=== PATIENT | female | born 1990 | race Caucasian/White ===

== ENCOUNTER 2017-01-18 18:57 | Observation (INO) ==
[2017-01-18 21:29] LABS: Basophils % 0.2 %; Eosinophils # 0.1 K/mcL (0.0-0.6); Eosinophils % 0.4 %; Hematocrit 34.7 % (35.3-44.9); Hemoglobin 11.7 g/dL (11.5-15.4); Immature Granulocytes % 0.8 % (0-4); Lymphocytes # 1.2 K/mcL (0.6-4.6); Lymphocytes % 8.9 %; Mean Corpuscular HGB Conc 33.7 g/dL (31.6-35.5); Mean Corpuscular Hemoglobin 27.6 pg (28.0-33.3); Mean Corpuscular Volume 81.8 fL (83.0-100.0); Mean Platelet Volume 10.3 fL (9.4-12.4); Monocytes # 1.5 K/mcL (0.0-1.3); Monocytes % 11.1 %; Neutrophils # 10.3 K/mcL (1.6-8.9); Platelet Count 270 K/mcL (140-400); Red Blood Count 4.24 M/mcL (3.82-4.97); Red Cell Distribution Width 13.4 % (11.5-14.5); Segmented Neutrophils % 78.6 %
[2017-01-18 21:31] LABS: INR 1.3; Prothrombin Time 13.7 Seconds (9.4-12.1)
[2017-01-18 21:34] LABS: Activated Partial Thrombo Time 31.1 Seconds (26.0-36.0)
[2017-01-18 21:39] LABS: Alanine Aminotransferase 39 Units/L (0-55); Albumin 2.7 g/dL (3.5-5.0); Albumin/Globulin Ratio 0.5 (1.1-2.2); Alkaline Phosphatase 257 Units/L (38-126); Aspartate Amino Transferase 61 Units/L (5-34); BUN/Creatinine Ratio 12 (6-26); Bilirubin,Total 1.4 mg/dL (0.2-1.2); Blood Urea Nitrogen 12 mg/dL (7-20); Calcium 9.2 mg/dL (8.6-10.8); Carbon Dioxide 24 mEq/L (19-29); Chloride 94 mEq/L (98-109); Globulin 5.3 g/dL (2.4-3.5); Glucose 117 mg/dL (70-99); Osmolality,Calculated 275 (280-300); Potassium 3.1 mEq/L (3.5-4.5); Sodium 132 mEq/L (136-145); eGFR For African Americans > 60 (> 60); eGFR For Non-African Americans > 60 (> 60)
[2017-01-18] MEDS ORDERED: Ondansetron 4 MG/2 ML VIAL IVP ONE (22:15)
[2017-01-18] MEDS ORDERED: Pantoprazole 40 MG VIAL IVP ONE (22:16)
[2017-01-18] MEDS ORDERED: 0.9 % Sodium Chloride 1,000 ML IVC ONE (22:16)
--- NOTE | 2017-01-18 22:19 | Emergency Department Note ---
Disposition Clinical Impression: Abdominal pain Qualifiers: Abdominal location: epigastric Qualified Code(s): R10.13 - Epigastric pain Disposition: Still a Patient Referrals: NO,PCP [Primary Care Provider] - Forms: Work/School Release, ED Satisfaction Letter Abdominal Pain HPI - General Chief Complaint: ED Abdominal Pain Stated Complaint: "vomiting blood" Time Seen by Provider: 01/18/17 22:07 Source: patient Nursing Notes Reviewed: Yes Vital Signs Reviewed: Yes - History of Present Illness HPI Narrative: 26-year-old female presents to the emergency department with 4 day history of midepigastric abdominal pain and vomiting. She states approximately 4 days ago she had vomiting of blood. She said the blood has stopped 2 days ago, but she still vomiting everything she tries to eat or drink. She is not seen blood in her vomit for several days now. She denies blood in her stool. She does have continued midepigastric abdominal pain that is nonradiating in nature. She denies fevers or chills she denies chest pain or shortness of breath. She is here today for correction of her nausea and vomiting. Pt Subjective Complaint: abdominal pain Onset (ago): day(s) Consistency: constant Location: epigastric Pain Severity: moderate Pain Scale: 5 Radiation: none Migration to: no migration Improves with: nothing Worsens with: nothing Context: other (History of IV drug abuse) Associated symptoms: Reports: nausea, vomiting Treatments prior to arrival: none - Related Data Allergies Allergy/AdvReac Type Severity Reaction Status Date / Time No Known Allergies Allergy Verified 01/18/17 19:06 All systems ED: reviewed and negative except as stated. Constitutional: Reports: as per HPI Eyes: Reports: as per HPI ENT ED: Reports: as per HPI Cardiovascular: Reports: as per HPI Respiratory: Reports: as per HPI Gastrointestinal: Reports: abdominal pain, nausea, vomiting Abdominal Pain PMH - Past Medical History Medical history: Reports: hepatitis - Social History Smoking status: Current every day smoker Alcohol use: Reports: none Drug use: Reports: none Physical Exam - General Limitations: no limitations General appearance: alert, in no apparent distress - Head Head exam: atraumatic - Eye Eye exam: Present: normal appearance - ENT ENT exam: normal exam - Neck Neck exam: Present: normal inspection - Chest Chest inspection: Present: normal inspection - Respiratory Respiratory exam: Present: normal lung sounds bilaterally - Cardiovascular Cardiovascular exam: Present: regular rate, normal rhythm - Abdominal Exam Abdominal exam: Present: soft, tenderness, normal bowel sounds. Absent: distention, guarding Abdominal tenderness: Present: epigastrium - Rectal Exam Rectal exam: Present: deferred - Extremities Exam Extremities exam: Present: normal inspection - Neurological Exam Neurological exam: Present: alert, oriented X3 - Psychiatric Psychiatric exam: Present: normal affect, normal mood - Skin Skin exam: Present: warm, dry, intact, other (Track fan from IV drug abuse.) Course Vital Signs Temperature 98.6 F 01/18/17 19:04 Pulse Rate 108 01/18/17 19:04 Respiratory Rate 18 01/18/17 19:04 Blood Pressure 100/70 01/18/17 19:04 O2 Sat by Pulse Oximetry 98 01/18/17 19:04 Temperature 98.6 F 01/18/17 19:04 Pulse Rate 108 01/18/17 19:04 Respiratory Rate 18 01/18/17 19:04 Blood Pressure 100/70 01/18/17 19:04 O2 Sat by Pulse Oximetry 98 01/18/17 19:04 Oxygen Delivery Oxygen Delivery Room Air Abdominal Pain - MDM Narrative Medical decision making narrative: We will do labs to check for abdominal issues including pancreatitis, we will also get a CT scan of the abdomen and pelvis with IV contrast to rule out abscess or other such abnormality. I do not think that she has an active GI bleed. We will treat her with some protonic swollen the emergency department as well as some Zofran to control the vomiting. If the workup is essentially negative I can anticipate patient going home because he do not think again she has an active GI bleed and her H&H is are stable. Patient was signed out to the 19 for final evaluation and treatment. - Lab Data Lab results reviewed: Yes I reviewed the patient's lab results. Result diagrams: 01/18/17 21:19 01/18/17 21:19 Lab Results 01/18/17 01/18/17 01/18/17 Range/Units 21:19 21:19 21:19 WBC 13.1 H (4.3-11.1) K/mcL RBC 4.24 (3.82-4.97) M/mcL Hgb 11.7 (11.5-15.4) g/dL Hct 34.7 L (35.3-44.9) % MCV 81.8 L (83.0-100.0) fL MCH 27.6 L (28.0-33.3) pg MCHC 33.7 (31.6-35.5) g/dL RDW 13.4 (11.5-14.5) % Plt Count 270 (140-400) K/mcL MPV 10.3 (9.4-12.4) fL Immature Gran % 0.8 (0-4) % Seg Neutrophils % 78.6 % Lymphocytes % 8.9 % Monocytes % 11.1 % Eosinophils % 0.4 % Basophils % 0.2 % Neutrophils # 10.3 H (1.6-8.9) K/mcL Lymphocytes # 1.2 (0.6-4.6) K/mcL Monocytes # 1.5 H (0.0-1.3) K/mcL Eosinophils # 0.1 (0.0-0.6) K/mcL Basophils # 0.0 (0.0-0.2) K/mcL PT 13.7 H (9.4-12.1) Seconds INR 1.3 APTT 31.1 (26.0-36.0) Seconds Sodium 132 L (136-145) mEq/L Potassium 3.1 L (3.5-4.5) mEq/L Chloride 94 L (98-109) mEq/L Carbon Dioxide 24 (19-29) mEq/L BUN 12 (7-20) mg/dL Creatinine 0.98 (0.57-1.11) mg/dL Est GFR ( Amer) > 60 (> 60) Est GFR (Non-Af Amer) > 60 (> 60) BUN/Creatinine Ratio 12 (6-26) Glucose 117 H (70-99) mg/dL Calculated Osmolality 275 L (280-300) Calcium 9.2 (8.6-10.8) mg/dL Total Bilirubin 1.4 H (0.2-1.2) mg/dL AST 61 H (5-34) Units/L ALT 39 (0-55) Units/L Alkaline Phosphatase 257 H (38-126) Units/L Serum Total Protein 8.0 (6.0-8.3) g/dL Albumin 2.7 L (3.5-5.0) g/dL Globulin 5.3 H (2.4-3.5) g/dL Albumin/Globulin Ratio 0.5 L (1.1-2.2) Lipase (8-78) Units/L Serum , Qual (Negative) 01/18/17 01/18/17 Range/Units 21:19 21:19 WBC (4.3-11.1) K/mcL RBC (3.82-4.97) M/mcL Hgb (11.5-15.4) g/dL Hct (35.3-44.9) % MCV (83.0-100.0) fL MCH (28.0-33.3) pg MCHC (31.6-35.5) g/dL RDW (11.5-14.5) % Plt Count (140-400) K/mcL MPV (9.4-12.4) fL Immature Gran % (0-4) % Seg Neutrophils % % Lymphocytes % % Monocytes % % Eosinophils % % Basophils % % Neutrophils # (1.6-8.9) K/mcL Lymphocytes # (0.6-4.6) K/mcL Monocytes # (0.0-1.3) K/mcL Eosinophils # (0.0-0.6) K/mcL Basophils # (0.0-0.2) K/mcL PT (9.4-12.1) Seconds INR APTT (26.0-36.0) Seconds Sodium (136-145) mEq/L Potassium (3.5-4.5) mEq/L Chloride (98-109) mEq/L Carbon Dioxide (19-29) mEq/L BUN (7-20) mg/dL Creatinine (0.57-1.11) mg/dL Est GFR ( Amer) (> 60) Est GFR (Non-Af Amer) (> 60) BUN/Creatinine Ratio (6-26) Glucose (70-99) mg/dL Calculated Osmolality (280-300) Calcium (8.6-10.8) mg/dL Total Bilirubin (0.2-1.2) mg/dL AST (5-34) Units/L ALT (0-55) Units/L Alkaline Phosphatase (38-126) Units/L Serum Total Protein (6.0-8.3) g/dL Albumin (3.5-5.0) g/dL Globulin (2.4-3.5) g/dL Albumin/Globulin Ratio (1.1-2.2) Lipase 5 L (8-78) Units/L Serum , Qual Negative (Negative) - Radiology Data Radiology results reviewed: Yes I reviewed the patient's radiology results. S.B.AFloresita - S.SundarAFloresita Situation: Demographics, MOA Background: Presenting Complaint Assessment: Vital Signs, Course and respsone to treatment, Exam Concerns Recommendation: Barrier(s) to disposition, Recommendation based on pending studies, treatments, or consults S.B.A.RMiguel Report Given to: Dr. Celine Ernandez Repor Time: 23:00
[2017-01-18 23:07] LABS: Bilirubin,Urine Negative (Negative); Blood,Urine Large (Negative); Clarity,Urine Cloudy (Clear); Color,Urine Yellow (Yellow); Glucose,Urine (UA) Normal (Normal); Ketones,Urine Negative (Negative); Leukocyte Esterase,Urine Large (Negative); Nitrite,Urine Negative (Negative); PH,Urine 6.5 pH Units (5.0-8.0); Protein,Urine 30 mg/dL (Neg-Trace); Specific Gravity,Urine 1.008 (1.010-1.025); Urobilinogen,Urine Normal (Normal)
[2017-01-18 23:11] LABS: Bacteria,Urine Many per hpf (None-Few); Hyaline Casts,Urine None Seen per lpf (None-Few); Squamous Epithelial Cell,Urine Many per lpf (None-Few); WBC,Urine 30-50 per hpf (0-3)
[2017-01-19] MEDS ORDERED: 0.9 % Sodium Chloride 1,000 ML IVC ONE (01:32)
--- NOTE | 2017-01-19 01:35 | Emergency Department Note ---
Disposition Clinical Impression: Abdominal pain Qualifiers: Abdominal location: epigastric Qualified Code(s): R10.13 - Epigastric pain Disposition: Still a Patient General Adult HPI - General Chief complaint: ED Abdominal Pain Stated complaint: "vomiting blood" Time Seen by Provider: 01/18/17 22:07 Source: patient Limitations: no limitations - History of Present Illness Pain Scale: 4 - Related Data Allergies Allergy/AdvReac Type Severity Reaction Status Date / Time No Known Allergies Allergy Verified 01/18/17 19:06 Constitutional: Reports: as per HPI Eyes: Reports: as per HPI ENT ED: Reports: as per HPI Cardiovascular: Reports: as per HPI Respiratory: Reports: as per HPI Gastrointestinal: Reports: abdominal pain, nausea, vomiting Past Medical History - Past Medical History Medical history: Reports: hepatitis - Social History Smoking Status: Current every day smoker Alcohol use: Reports: none Drug use: Reports: none Physical Exam - General Limitations: no limitations General appearance: alert, in no apparent distress Course Course Narrative: Patient was seen by Dr. Montenegro. Care was handed off to Dr. Mcwilliams and me , after discussion of the case. Patient's labs had been resulted, but CT has not been done yet. Pt has no complaints at this time. BP is slightly below normal, however she is only 42 kg. Upon arrival to the ED she was mildly tachycardic. She has received 1Liter of NS and repeat pulse x [address] shows Pyelonephritis. Patient also has leukocytosis and vomiting. Will admit. Lactate, blood cultures and Rocephin ordered, along with additional fluids. Hospitalist contacted for admission. Patient has been accepted. Of note, patient states that she was recently diagnosed with a UTI and was given Bactrim DS. She took this for several days and then the vomiting began - which precluded her from taking the rest of it. Vital Signs Temperature 98.6 F 01/18/17 19:04 Pulse Rate 108 01/18/17 19:04 Respiratory Rate 18 01/18/17 19:04 Blood Pressure 100/70 01/18/17 19:04 O2 Sat by Pulse Oximetry 98 01/18/17 19:04 Temperature 98.6 F 01/18/17 19:04 Pulse Rate 98 01/19/17 01:25 Respiratory Rate 16 01/19/17 01:25 Blood Pressure 104/76 01/19/17 01:25 O2 Sat by Pulse Oximetry 98 01/19/17 01:25 Oxygen Delivery Oxygen Delivery Room Air Medical Decision Making - Lab Data Result diagrams: 01/18/17 21:19 01/18/17 21:19 Lab Results 01/18/17 01/18/17 01/18/17 Range/Units 21:19 21:19 21:19 WBC 13.1 H (4.3-11.1) K/mcL RBC 4.24 (3.82-4.97) M/mcL Hgb 11.7 (11.5-15.4) g/dL Hct 34.7 L (35.3-44.9) % MCV 81.8 L (83.0-100.0) fL MCH 27.6 L (28.0-33.3) pg MCHC 33.7 (31.6-35.5) g/dL RDW 13.4 (11.5-14.5) % Plt Count 270 (140-400) K/mcL MPV 10.3 (9.4-12.4) fL Immature Gran % 0.8 (0-4) % Seg Neutrophils % 78.6 % Lymphocytes % 8.9 % Monocytes % 11.1 % Eosinophils % 0.4 % Basophils % 0.2 % Neutrophils # 10.3 H (1.6-8.9) K/mcL Lymphocytes # 1.2 (0.6-4.6) K/mcL Monocytes # 1.5 H (0.0-1.3) K/mcL Eosinophils # 0.1 (0.0-0.6) K/mcL Basophils # 0.0 (0.0-0.2) K/mcL PT 13.7 H (9.4-12.1) Seconds INR 1.3 APTT 31.1 (26.0-36.0) Seconds Sodium 132 L (136-145) mEq/L Potassium 3.1 L (3.5-4.5) mEq/L Chloride 94 L (98-109) mEq/L Carbon Dioxide 24 (19-29) mEq/L BUN 12 (7-20) mg/dL Creatinine 0.98 (0.57-1.11) mg/dL Est GFR ( Amer) > 60 (> 60) Est GFR (Non-Af Amer) > 60 (> 60) BUN/Creatinine Ratio 12 (6-26) Glucose 117 H (70-99) mg/dL Calculated Osmolality 275 L (280-300) Calcium 9.2 (8.6-10.8) mg/dL Total Bilirubin 1.4 H (0.2-1.2) mg/dL AST 61 H (5-34) Units/L ALT 39 (0-55) Units/L Alkaline Phosphatase 257 H (38-126) Units/L Serum Total Protein 8.0 (6.0-8.3) g/dL Albumin 2.7 L (3.5-5.0) g/dL Globulin 5.3 H (2.4-3.5) g/dL Albumin/Globulin Ratio 0.5 L (1.1-2.2) Lipase (8-78) Units/L Serum , Qual (Negative) Urine Color (Yellow) Urine Clarity (Clear) Urine pH (5.0-8.0) pH Units Ur Specific [place] (1.010-1.025) Urine Protein (Neg-Trace) mg/dL Urine Glucose (UA) (Normal) mg/dL Urine Ketones (Negative) mg/dL Urine Blood (Negative) Urine Nitrite (Negative) Urine Bilirubin (Negative) Urine Urobilinogen (Normal) mg/dL Ur Leukocyte Esterase (Negative) Urine Microscopic RBC (0-3) per hpf Urine Microscopic WBC (0-3) per hpf Ur Squamous Epith Cells (None-Few) per lpf Urine Bacteria (None-Few) per hpf Hyaline Casts (None-Few) per lpf Ur Culture Indicated? (NO) Urine Test (Negative) 01/18/17 01/18/17 01/18/17 Range/Units 21:19 21:19 23:00 WBC (4.3-11.1) K/mcL RBC (3.82-4.97) M/mcL Hgb (11.5-15.4) g/dL Hct (35.3-44.9) % MCV (83.0-100.0) fL MCH (28.0-33.3) pg MCHC (31.6-35.5) g/dL RDW (11.5-14.5) % Plt Count (140-400) K/mcL MPV (9.4-12.4) fL Immature Gran % (0-4) % Seg Neutrophils % % Lymphocytes % % Monocytes % % Eosinophils % % Basophils % % Neutrophils # (1.6-8.9) K/mcL Lymphocytes # (0.6-4.6) K/mcL Monocytes # (0.0-1.3) K/mcL Eosinophils # (0.0-0.6) K/mcL Basophils # (0.0-0.2) K/mcL PT (9.4-12.1) Seconds INR APTT (26.0-36.0) Seconds Sodium (136-145) mEq/L Potassium (3.5-4.5) mEq/L Chloride (98-109) mEq/L Carbon Dioxide (19-29) mEq/L BUN (7-20) mg/dL Creatinine (0.57-1.11) mg/dL Est GFR ( Amer) (> 60) Est GFR (Non-Af Amer) (> 60) BUN/Creatinine Ratio (6-26) Glucose (70-99) mg/dL Calculated Osmolality (280-300) Calcium (8.6-10.8) mg/dL Total Bilirubin (0.2-1.2) mg/dL AST (5-34) Units/L ALT (0-55) Units/L Alkaline Phosphatase (38-126) Units/L Serum Total Protein (6.0-8.3) g/dL Albumin (3.5-5.0) g/dL Globulin (2.4-3.5) g/dL Albumin/Globulin Ratio (1.1-2.2) Lipase 5 L (8-78) Units/L Serum , Qual Negative (Negative) Urine Color Yellow (Yellow) Urine Clarity Cloudy A (Clear) Urine pH 6.5 (5.0-8.0) pH Units Ur Specific [place] 1.008 L (1.010-1.025) Urine Protein 30 H (Neg-Trace) mg/dL Urine Glucose (UA) Normal (Normal) mg/dL Urine Ketones Negative (Negative) mg/dL Urine Blood Large H (Negative) Urine Nitrite Negative (Negative) Urine Bilirubin Negative (Negative) Urine Urobilinogen Normal (Normal) mg/dL Ur Leukocyte Esterase Large H (Negative) Urine Microscopic RBC 3-5 H (0-3) per hpf Urine Microscopic WBC 30-50 H (0-3) per hpf Ur Squamous Epith Cells Many H (None-Few) per lpf Urine Bacteria Many H (None-Few) per hpf Hyaline Casts None Seen (None-Few) per lpf Ur Culture Indicated? YES A (NO) Urine Test (Negative) 01/18/17 Range/Units 23:00 WBC (4.3-11.1) K/mcL RBC (3.82-4.97) M/mcL Hgb (11.5-15.4) g/dL Hct (35.3-44.9) % MCV (83.0-100.0) fL MCH (28.0-33.3) pg MCHC (31.6-35.5) g/dL RDW (11.5-14.5) % Plt Count (140-400) K/mcL MPV (9.4-12.4) fL Immature Gran % (0-4) % Seg Neutrophils % % Lymphocytes % % Monocytes % % Eosinophils % % Basophils % % Neutrophils # (1.6-8.9) K/mcL Lymphocytes # (0.6-4.6) K/mcL Monocytes # (0.0-1.3) K/mcL Eosinophils # (0.0-0.6) K/mcL Basophils # (0.0-0.2) K/mcL PT (9.4-12.1) Seconds INR APTT (26.0-36.0) Seconds Sodium (136-145) mEq/L Potassium (3.5-4.5) mEq/L Chloride (98-109) mEq/L Carbon Dioxide (19-29) mEq/L BUN (7-20) mg/dL Creatinine (0.57-1.11) mg/dL Est GFR ( Amer) (> 60) Est GFR (Non-Af Amer) (> 60) BUN/Creatinine Ratio (6-26) Glucose (70-99) mg/dL Calculated Osmolality (280-300) Calcium (8.6-10.8) mg/dL Total Bilirubin (0.2-1.2) mg/dL AST (5-34) Units/L ALT (0-55) Units/L Alkaline Phosphatase (38-126) Units/L Serum Total Protein (6.0-8.3) g/dL Albumin (3.5-5.0) g/dL Globulin (2.4-3.5) g/dL Albumin/Globulin Ratio (1.1-2.2) Lipase (8-78) Units/L Serum , Qual (Negative) Urine Color (Yellow) Urine Clarity (Clear) Urine pH (5.0-8.0) pH Units Ur Specific [place] (1.010-1.025) Urine Protein (Neg-Trace) mg/dL Urine Glucose (UA) (Normal) mg/dL Urine Ketones (Negative) mg/dL Urine Blood (Negative) Urine Nitrite (Negative) Urine Bilirubin (Negative) Urine Urobilinogen (Normal) mg/dL Ur Leukocyte Esterase (Negative) Urine Microscopic RBC (0-3) per hpf Urine Microscopic WBC (0-3) per hpf Ur Squamous Epith Cells (None-Few) per lpf Urine Bacteria (None-Few) per hpf Hyaline Casts (None-Few) per lpf Ur Culture Indicated? (NO) Urine Test Negative (Negative)
[2017-01-19] MEDS ORDERED: Ondansetron 4 MG/2 ML VIAL IVP PRN (03:13)
[2017-01-19] MEDS ORDERED: Naloxone 0.4 MG/ML INJ IVP PRN (03:13)
[2017-01-19] MEDS: Acetaminophen 325 MG TABLET PO PRN ×2 (03:32→18:27)
[2017-01-19] MEDS: 0.9 % Sodium Chloride 1,000 ML IVC SCH ×2 (03:37→19:44)
--- NOTE | 2017-01-19 05:59 | Internal Med History&Physical ---
Date of Encounter: 01/19/17 Time of Encounter: 03:00 Assessment and Plan (1) Acute infective polyneuritis Current visit: Yes Status: Acute Acute polynephritis. - Continue antibiotic Rocephin. - Follow-up urine culture - Symptomatic treatment. (2) DVT prophylaxis Current visit: Yes Status: Acute Patient is young and ambulatory. No anticoagulation also because patient has hematuria (3) Tobacco abuse Current visit: Yes Status: Acute Nicotine patch placed. Internal Medicine - H&P: HPI Chief complaint: Hematuria Admitted From: Home Plans for Post Hospital Care: Home History of present illness: Ms. Portillo is a 26 year old female presented to ER for hematuria for 3 days. She said that the blood is mixed with urine. Patient also has urgency and increased the frequency of urination. She has fever to 102. She complains left sided flank pain, constant, 4 out of 10. Patient also has nausea and vomited. Vomiting is stomach content. In emergency room, CT abdomen shows left side pyelonephritis. Patient was admitted as acute pyelonephritis. Discussed the CODE STATUS with patient. She is full code. Past Med Surg Social Fam HX - Past Medical History Medical history: hepatitis, other - Social History Smoking Status: Current every day smoker Packs per day: 0.5 Smokeless Tobacco Status: No Alcohol use: none Drug use: none - Family History Mother Hx Family Cardiac Disorders: Yes (DVT) Internal Medicine - H&P: Meds Allergies No Known Allergies Allergy (Verified 01/18/17 19:06) All Systems PM: A 10-system review of systems was performed and is negative for pertinent findings except as documented above in the HPI. - Constitutional Vitals: Temp Pulse Resp BP Pulse Ox 97.9 F 109 16 110/69 99 01/19/17 03:49 01/19/17 03:49 01/19/17 03:49 01/19/17 03:49 01/19/17 03:49 General appearance: Present: A&O X 3, no acute distress, answers questions appropriately - Head Head exam: Present: atraumatic, normocephalic - Eye Eye exam: Present: PERRL, conjuntiva pink, sclera anicteric Pupils: Present: PERRL - Neck Neck exam general surgery: Present: supple, trachea midline. Absent: lymphadenopathy - Respiratory Respiratory exam: Present: CTAB. Absent: accessory muscle use, rales, rhonchi, wheezes - Cardiovascular Cardiovascular exam: Present: RRR, +S1, +S2. Absent: diastolic murmur, gallop, rubs, systolic murmur - GI/Abdominal GI/Abdominal exam: Present: normal bowel sounds, soft, no peritoneal signs. Absent: distended, tenderness Additional comments: Left CVAT positive - Extremities Exam Extremities exam: Present: warm, radial pulses palpable and symetrical. Absent : calf tenderness, cyanotic, pedal edema - Neurological Exam Neurological exam: Present: CN II-XII intact, oriented X3, no focal deficits. Absent: pronater drift, facial droop, speech deficit - Skin Skin exam: Present: dry, intact Internal Med - H&P Results - Labs CBC & Chem 7: 01/18/17 21:19 01/18/17 21:19
[2017-01-19] MEDS ORDERED: 0.9 % Sodium Chloride 500 ML ONE (08:30)
[2017-01-19] MEDS ORDERED: 0.9 % Sodium Chloride 500 ML IVC ONE (08:34)
[2017-01-19] MEDS: Nicotine 14 MG PATCH.TD24 TD SCH (08:39)
--- NOTE | 2017-01-19 16:48 | Event Note ---
Date of Encounter: 01/19/17 Time of Encounter: 09:00 Is feeling better today. Pain in her left flank has improved. She had not slept much last night and feels tired. Nausea is improving. She did have low- grade fever this afternoon. We will continue IV antibiotics. Follow culture results.
[2017-01-20 08:10] VITALS: BP 100/64
[2017-01-20 08:56] LABS: Basophils % 0.4 %; Eosinophils # 0.1 K/mcL (0.0-0.6); Eosinophils % 1.6 %; Hematocrit 30.6 % (35.3-44.9); Immature Granulocytes % 1.6 % (0-4); Lymphocytes # 1.4 K/mcL (0.6-4.6); Lymphocytes % 19.7 %; Mean Corpuscular Hemoglobin 27.4 pg (28.0-33.3); Mean Corpuscular Volume 83.2 fL (83.0-100.0); Mean Platelet Volume 10.9 fL (9.4-12.4); Monocytes # 0.6 K/mcL (0.0-1.3); Monocytes % 8.2 %; Platelet Count 260 K/mcL (140-400); Red Blood Count 3.68 M/mcL (3.82-4.97); Red Cell Distribution Width 14.1 % (11.5-14.5); Segmented Neutrophils % 68.5 %
[2017-01-20 08:57] LABS: Hemoglobin 10.1 g/dL (11.5-15.4)
[2017-01-20] MEDS: Nicotine 14 MG PATCH.TD24 TD SCH (09:00)
[2017-01-20 09:11] LABS: BUN/Creatinine Ratio 7 (6-26); Blood Urea Nitrogen 5 mg/dL (7-20); Calcium 8.3 mg/dL (8.6-10.8); Carbon Dioxide 20 mEq/L (19-29); Chloride 109 mEq/L (98-109); Glucose 115 mg/dL (70-99); Osmolality,Calculated 288 (280-300); Potassium 3.5 mEq/L (3.5-4.5); Sodium 140 mEq/L (136-145); eGFR For African Americans > 60 (> 60); eGFR For Non-African Americans > 60 (> 60)
--- NOTE | 2017-01-20 10:26 | Discharge Summary ---
Date of Encounter: 01/20/17 Time of Encounter: 10:20 - Discharge Diagnosis (1) Acute pyelonephritis Priority: Primary Status: Acute (2) Tobacco abuse Priority: Secondary Status: Acute - Discharge Medications Prescriptions: Ciprofloxacin [Cipro] 500 mg PO BID #14 tablet Home Medications: Ciprofloxacin [Cipro] 500 mg PO BID #14 tablet 01/20/17 [Rx] Allergies/Adverse Reactions: Allergies No Known Allergies Allergy (Verified 01/18/17 19:06) Date of admission: 01/19/17 02:01 Primary care physician: PCP NO Discharging clinician: Orlando Galan Anticipated date of discharge: 01/20/17 - Patient Status Disposition: Home, Self-Care Condition: Good Functional capacity at discharge: independent ambulation Overall status at discharge: patient is progressing back to baseline - Discharge Instructions Instructions: How to Stop Smoking (DC), How to Stop Smoking (GEN), Urinary Tract Infection in Women (DC), Cigarette Smoking and Your Health (GEN) Follow Up With: Federica Dwyer CNP [Advanced Practice Nurse] - 01/27/17 2:00 pm (Please follow up as scheduled. You will get a new patient packet in the mail. Please complete and take with you to your appointment. If you do not get this packet in the mail please arrive to your appointment 30mins before you scheduled appointment time. If you have to cancel you appointment for any reason please make sure you do so 24hrs in advance to remain in the practice. Please bring your ID, discharge packet, insurance card and a list of all medication that you are currently taking. If you have any questions please feel free to call and ask. Thank you!!) - Diet and Activity Activity: increase activity as tolerated Diet: advance to your usual diet Hospital course: Ms. Portillo is a 26 year old female with no significant past medical history was hospitalized here with acute pyelonephritis. She had presented with some nausea or vomiting, left-sided flank pain along with hematuria and fever. She was treated with IV antibiotics. Her blood cultures have been negative. Her urine culture is growing gram-negative rods. Patient is clinically feeling much better with resolution of her pain and fever. She is stable to be discharged home on oral antibiotics. As she has not previously been treated for any serious infections and is not immunocompromised, she is less likely to have any resistant bacteria at this time. - Time Spent with Patient Total time spent providing and/or coordinating discharge services: Less than 30 minutes (25 min) - Constitutional Vitals: Temp Pulse Resp BP Pulse Ox 98.6 F 79 13 100/64 99 01/20/17 08:08 01/20/17 08:08 01/20/17 08:08 01/20/17 08:08 01/20/17 08:08 General appearance: Present: A&O X 3, no acute distress, answers questions appropriately - Respiratory Respiratory exam: Present: CTAB. Absent: accessory muscle use, rales, rhonchi, wheezes - Cardiovascular Cardiovascular exam: Present: RRR, +S1, +S2. Absent: diastolic murmur, gallop, rubs, systolic murmur - GI/Abdominal GI/Abdominal exam: Present: normal bowel sounds, soft, no peritoneal signs. Absent: distended, tenderness - Extremities Exam Extremities exam: Present: warm, radial pulses palpable and symetrical. Absent : calf tenderness, cyanotic, pedal edema - Attending Attestation This document has been at least partially created by [employer] recognition technology by Dr. Galan. Errors in grammar, wording or other phrases may exist. If errors are found after the documentation is signed, they will be addressed individually in the addendum section of this document when appropriate.
== END 2017-01-20 14:19 | disposition home or self-care (01) ==
LOC: EMEROO 18:57 → 2ANU 18:57 → SUATTDRO 01-19 02:01 → 2ANU 01-19 03:12
PROVIDERS: ADMIT Internal Medicine; ATTEND Internal Medicine